=== PATIENT | female | born 1950 | race Caucasian/White ===

== ENCOUNTER 2024-05-12 18:54 | Inpatient (IN) | payer OTHER ==
[2024-05-12 19:21] VITALS: BP 155/67
[2024-05-12 19:49] LABS: BASO % 0.7 % (0.0-1.0); EOS % 0.2 % (1.0-4.0); HEMATOCRIT 43.1 % (37.0-47.0); LYMPH # 2.1 10*3/uL (1.3-4.4); LYMPH % 34.6 % (27.0-41.0); MEAN CELL VOLUME 80.7 fl (81.0-99.0); MEAN CORPUSCULAR HGB 25.8 pg (27.0-31.0); MEAN PLATELET VOLUME 9.4 fl (9.6-12.3); MONO # 0.5 10*3/uL (0.1-1.0); MONO % 7.6 % (3.0-9.0); NEUT # 3.4 10*3/uL (2.3-7.9); NEUT % 56.6 % (47.0-73.0); PLATELET COUNT AUTOMATED 309 10*3/uL (130-400); RED BLOOD COUNT 5.34 10*6/uL (4.10-5.10); RED CELL DISTRI WIDTH 15.1 % (0-14.5); WHITE BLOOD COUNT 6.1 10*3/uL (4.8-10.8)
[2024-05-12 20:02] LABS: BILIRUBIN Negative (Negative); BLOOD Negative (Negative); CLARITY Cloudy (Clear); COLOR Yellow (Yellow); GLUCOSE Negative (Negative); KETONE Negative (Negative); LEUKO ESTERASE 3+ (Negative); NITRITE Negative (Negative); PH 5.5 (4.5-8.0); UROBILINOGEN 0.2 E.U./dl (0.0-1.0)
[2024-05-12 20:11] LABS: ALKALINE PHOSPHATASE 83 U/L (46-116); BUN 13 mg/dl (9-23); CHLORIDE 101 mmol/L (98-107); LIPASE 32 U/L (12-53); POTASSIUM 3.7 mmol/L (3.4-5.1); SGPT/ALT < 7 U/L (5-49); TOTAL PROTEIN 7.1 gm/dL (6.0-8.0)
[2024-05-12 20:20] LABS: BACTERIA 2+; RBC 0-2 rbc/hpf (0-2); WBC 41-50 wbc/hpf (0-5)
[2024-05-12] MEDS ORDERED: SODIUM CHLORIDE 0.9% 1,000 ML IV ONE (20:45)
[2024-05-12] MEDS ORDERED: Ceftriaxone Sodium 1 GM/10 ML SYR IV ONE (20:45)
[2024-05-12 22:17] VITALS: BP 187/84
[2024-05-12] MEDS ORDERED: CALCIUM 600 MG1 EAC6 PO (22:30)
[2024-05-12] MEDS ORDERED: ALBUTEROL HFA 90 MCG (22:30)
[2024-05-12] MEDS ORDERED: HYDROXYZINE HCL25 MG PO (22:30)
[2024-05-12] MEDS ORDERED: MONTELUKAST SOD10 MG PO (22:31)
[2024-05-12] MEDS ORDERED: ESCITALOPRAM OX20 MG PO (22:31)
[2024-05-12] MEDS ORDERED: OMEPRAZOLE MAGN20 MG PO (22:31)
[2024-05-12] MEDS ORDERED: TROSPIUM CHLORI60 M1 PO (22:32)
[2024-05-12] MEDS ORDERED: ESTRADIOL42.5 GM V (22:32)
[2024-05-12] MEDS ORDERED: VIBERZI75 MG PO (22:34)
[2024-05-12] MEDS ORDERED: HYDR25T PO (22:35)
[2024-05-12 22:36] VITALS: BP 173/75
[2024-05-13] MEDS ORDERED: ACETAMINOPHEN 650 MG SUPP R PRN (01:30)
[2024-05-13] MEDS ORDERED: BISACODYL 5 MG TAB PO PRN (01:30)
[2024-05-13] MEDS ORDERED: ACETAMINOPHEN 325 MG TAB PO PRN (01:30)
[2024-05-13] MEDS ORDERED: BISACODYL 10 MG SUPP R PRN (01:30)
[2024-05-13] MEDS ORDERED: Magnesium Hydroxide 30 ML UDC PO PRN (01:30)
[2024-05-13 03:29] VITALS: BP 163/68
[2024-05-13 06:00] VITALS: BP 124/76
[2024-05-13 07:09] LABS: BASO # 0.1 10*3/uL (0.0-0.1); BASO % 0.9 % (0.0-1.0); HEMATOCRIT 41.9 % (37.0-47.0); LYMPH # 1.4 10*3/uL (1.3-4.4); LYMPH % 25.4 % (27.0-41.0); MEAN CELL VOLUME 81.2 fl (81.0-99.0); MEAN PLATELET VOLUME 9.6 fl (9.6-12.3); MONO # 0.4 10*3/uL (0.1-1.0); NEUT # 3.5 10*3/uL (2.3-7.9); NEUT % 65.5 % (47.0-73.0); PLATELET COUNT AUTOMATED 273 10*3/uL (130-400); RED BLOOD COUNT 5.16 10*6/uL (4.10-5.10); WHITE BLOOD COUNT 5.4 10*3/uL (4.8-10.8)
[2024-05-13 07:30] LABS: BUN 10 mg/dl (9-23); CHLORIDE 104 mmol/L (98-107); CHOLESTEROL 223 mg/dL (<200); FREE T4 1.07 ng/dl (0.89-1.76); LDL CHOLESTEROL 107 mg/dL (9-159); POTASSIUM 3.4 mmol/L (3.4-5.1); TRIGLYCERIDES 251 mg/dl (<150)
[2024-05-13 07:43] VITALS: BP 117/72
[2024-05-13] MEDS ORDERED: CEPHALEXIN500 M1 PO (08:59)
[2024-05-13] MEDS ORDERED: NYSTATIN CREAM15 GM T (08:59)
[2024-05-13] MEDS ORDERED: ESTRADIOL 42.5 GM TUBE V SCH (10:00)
[2024-05-13] MEDS ORDERED: Enoxaparin Sodium 40 MG/0.4 ML SYR SC SCH (10:00)
[2024-05-13] MEDS ORDERED: NYSTATIN 15 GM BOT T SCH (10:00)
[2024-05-13] MEDS ORDERED: Ceftriaxone Sodium 1 GM in SYRINGE INFUSION 10 ML IV SCH (21:00)
== END 2024-05-13 09:52 | disposition home or self-care (01) | DRG 690 ==
LOC: ED 18:54 → EDHOLD 05-13 00:29
PROVIDERS: Internal Medicine; Student in an Organized Health Care Education/Training Program; ADMIT Internal Medicine; ATTEND Internal Medicine
DX: N39.0 Urinary tract infection, site not specified (principal); E87.1 Hypo-osmolality and hyponatremia; F33.0 Major depressive disorder, recurrent, mild; F41.9 Anxiety disorder, unspecified; Z66 Do not resuscitate; K21.9 Gastro-esophageal reflux disease without esophagitis; I10 Essential (primary) hypertension; G62.9 Polyneuropathy, unspecified; Z96.651 Presence of right artificial knee joint; J45.20 Mild intermittent asthma, uncomplicated; N32.89 Other specified disorders of bladder; Z96.642 Presence of left artificial hip joint; J43.9 Emphysema, unspecified; J44.9 Chronic obstructive pulmonary disease, unspecified; K58.2 Mixed irritable bowel syndrome; E78.2 Mixed hyperlipidemia; R71.8 Other abnormality of red blood cells; Z87.891 Personal history of nicotine dependence; Z83.6 Family history of other diseases of the respiratory system; Z83.3 Family history of diabetes mellitus; Z98.42 Cataract extraction status, left eye; Z98.41 Cataract extraction status, right eye; Z90.710 Acquired absence of both cervix and uterus; Z88.6 Allergy status to analgesic agent; Z88.8 Allergy status to other drugs, medicaments and biological substances

== ENCOUNTER 2024-05-23 12:01 | Emergency (ER) | payer OTHER ==
[~2024-05-23 12:01] MED LIST: ALBUTEROL HFA 90 MCG; CALCIUM 600 MG1 EAC6 PO; CEPHALEXIN500 M1 PO; ESCITALOPRAM OX20 MG PO; ESTRADIOL42.5 GM V; HYDR25T PO; HYDROXYZINE HCL25 MG PO; MONTELUKAST SOD10 MG PO; NYSTATIN CREAM15 GM T; OMEPRAZOLE MAGN20 MG PO; TROSPIUM CHLORI60 M1 PO; VIBERZI75 MG PO
[2024-05-23] MEDS ORDERED: QUETIAPINE FUMA25 M1 PO (12:41)
[2024-05-23] MEDS ORDERED: ACETAMINOPHEN 325 MG TAB PO ONE (14:55)
== END 2024-05-23 14:12 | disposition home or self-care (01) ==
LOC: ED 12:01
DX: S32.2XXA Fracture of coccyx, initial encounter for closed fracture (principal); S09.90XA Unspecified injury of head, initial encounter; M79.621 Pain in right upper arm; F41.9 Anxiety disorder, unspecified; J44.9 Chronic obstructive pulmonary disease, unspecified; I10 Essential (primary) hypertension; K21.9 Gastro-esophageal reflux disease without esophagitis; E78.5 Hyperlipidemia, unspecified; F32.0 Major depressive disorder, single episode, mild; Z88.2 Allergy status to sulfonamides; Z88.8 Allergy status to other drugs, medicaments and biological substances; Z88.5 Allergy status to narcotic agent; Z79.899 Other long term (current) drug therapy; Z98.890 Other specified postprocedural states; Z96.642 Presence of left artificial hip joint; Z90.89 Acquired absence of other organs; Z96.651 Presence of right artificial knee joint; Z87.891 Personal history of nicotine dependence; W06.XXXA Fall from bed, initial encounter; Y93.84 Activity, sleeping; Y92.092 Bedroom in other non-institutional residence as the place of occurrence of the external cause; Y99.8 Other external cause status